=== PATIENT | female | born 1960 | race Caucasian/White ===

== ENCOUNTER 2016-10-04 19:43 | Emergency (ER) | payer MEDICARE, MEDICAID ==
[~2016-10-04] VITALS: Ht 172.7 cm; Wt 134.7 kg
[~2016-10-04 19:43] MED LIST: BIOT10004 PO; CLON1TAB3 PO; ESCI20TA10 PO; FLUT1DIS3 IH; HYDR-2762 PO; HYDR25TA9 PO; IBUP-1060 PO; METF500T4 PO; TRAZ150T55 PO
[2016-10-04 19:45] VITALS: BP 180/77
--- NOTE | 2016-10-04 20:48 | PHYS DOC ---
Past Medical History Past Medical History: Diabetes-Type II, High Cholesterol, Hypertension Past Surgical History: Other Additional Past Surgical Histo: R ankle Alcohol Use: Occasionally Drug Use: Marijuana Adult General Chief Complaint Chief Complaint: LOWER EXT PAIN HPI HPI Patient is a 55 year old female presents to the emergency department stating that she has having pain on her right lower leg. She states that she has not had any injuries or trauma to her ankle. She does have a history of an ankle fracture in the past in which she has chronic pain and discomfort in which she takes hydrocodone for she also states the hydrocodone does not help with the pain and discomfort anymore. She noticed that there was increased pain and swelling after cleaning the house today. Does have redness noted on the lower frontal part of her leg. Peripheral pulses are 2+ cap refill brisk less than 2 seconds. Review of Systems Review of Systems Constitutional: Denies fever or chills [] Eyes: Denies change in visual acuity, redness, or eye pain [] HENT: Denies nasal congestion or sore throat [] Respiratory: Denies cough or shortness of breath [] Cardiovascular: No additional information not addressed in HPI [] GI: Denies abdominal pain, nausea, vomiting, bloody stools or diarrhea [] : Denies dysuria or hematuria [] Musculoskeletal: Denies back pain or joint pain [] Integument: Denies rash or skin lesions. C/o pain to the right lower leg and ankle Neurologic: Denies headache, focal weakness or sensory changes [] Current Medications Current Medications Current Medications Medications (Trade) Dose Ordered Sig/Libra Start Time Stop Time Status Last Admin Dose Admin Oxycodone/ Acetaminophen (Percocet 5/325) 1 tab 1X ONCE 10/04/16 21:00 10/04/16 21:01 DC 10/04/16 20:57 1 TAB Allergies Allergies Allergies Coded Allergies Type Severity Reaction Last Updated Verified No Known Drug Allergies 11/28/15 No Physical Exam Physical Exam Constitutional: Well developed, well nourished, no acute distress, non-toxic appearance. [] HENT: Normocephalic, atraumatic, bilateral external ears normal, oropharynx moist, no oral exudates, nose normal. [] Eyes: PERRLA, EOMI, conjunctiva normal, no discharge. [] Neck: Normal range of motion, no tenderness, supple, no stridor. [] Cardiovascular:Heart rate regular rhythm, no murmur [] Lungs & Thorax: Bilateral breath sounds clear to auscultation [] Skin: Warm, dry, no erythema, no rash. [] Back: No tenderness Extremities: Right lower leg tenderness with redness and right ankle tenderness , no cyanosis, no clubbing, ROM intact, no edema. Patient appears to be able to ambulate although does appear to be limping favoring the right leg. Neurologic: Alert and oriented X 3, normal motor function, normal sensory function, no focal deficits noted. [] Psychologic: Affect normal, judgement normal, mood normal. [] Current Patient Data Vital Signs Vital Signs Date Time Temp Pulse Resp B/P Pulse Ox O2 Delivery O2 Flow Rate FiO2 10/04/16 20:57 Room Air 10/04/16 19:45 98.2 102 20 95 98.2 EKG EKG [] Radiology/Procedures Radiology/Procedures [] Course & Med Decision Making Course & Med Decision Making Pertinent Labs and Imaging studies reviewed. (See chart for details) Suspect the patient has cellulitis in the right lower leg. She is insistent that she needs to have an x-ray of the ankle. Explained to the patient that she has had no trauma or injury to the ankle the x-rays will more than likely be negative. Family member in patient was persistent that they had to have an x- ray proceeded to call his nurse practitioner jarad. Patient was then noted to be up ambulating out to the nurse's station with a limp. She was then noted to be ambulating in the [place] to the bathroom with no limp. X-rays of the tib-fib as well as ankle were negative per Dr. De. Patient will be discharged home with Bactrim for a cellulitis of the right lower leg with recommendations to keep her appointment on October 11 for follow-up. She may use Tylenol and ibuprofen for pain and discomfort she may also use ice packs elevation as much as possible. [] Dragon Disclaimer Dragon Disclaimer This electronic medical record was generated, in whole or in part, using a voice recognition dictation system. Departure Departure Impression: Primary Impression: Cellulitis of right lower leg Disposition: HOME, SELF-CARE Condition: STABLE Referrals: FRANSICO SIMS MD (PCP) Patient Instructions: Cellulitis, [id number] Additional Instructions: Your x-rays were negative for any fractures or any bony abnormalities. Antibiotics as prescribed. Tylenol or ibuprofen for pain and discomfort. Ice packs on 20 minutes off 20 minutes several times a day. Elevation as much as possible. Follow-up with your primary care physician in which she state you have an appointment on October 11. Return back to emergency department signs symptoms of become worse. Scripts Sulfamethoxazole/Trimethoprim (Bactrim Ds Tablet)1 Each Tablet1 Tab PO BID #20 TAB Prov:RONALDO ST APRN 10/04/[address] APRN Oct 04, 2016 20:48
[2016-10-04] MEDS ORDERED: OXYCODONE/APAP 5/325 TABLET. PO ONE (21:00)
[2016-10-04] MEDS ORDERED: SULF1TAB24 PO (22:03)
--- NOTE | 2016-10-05 08:53 | RAD ---
Right ankle, 3 views, 10/04/2016: History: Pain, previous surgery There is a metallic plate and screws in place transfixing an old healed fracture of the distal fibula. There is considerable degenerative change at the ankle joint. There is associated irregularity of the articular surface of the talus. There are periarticular calcifications and bone fragments. No definite acute fracture or dislocation is evident. There is moderate soft tissue swelling about the ankle. Right tibia and fibula, 2 views, 10/04/2016: Views of the proximal tibia and fibula reveal no additional bony abnormality. A few scattered calcified phleboliths are noted. IMPRESSION: 1. Old healed, internally fixed distal fibular fracture. 2. Severe degenerative change at the ankle joint. 3. Irregularity of the articular surface of the talus which appears old.
== END 2016-10-04 22:06 | disposition home or self-care (01) ==
LOC: ER 19:43
DX: L03.115 Cellulitis of right lower limb (principal); G89.29 Other chronic pain; E11.9 Type 2 diabetes mellitus without complications; E78.00 Pure hypercholesterolemia, unspecified; I10 Essential (primary) hypertension; F12.10 Cannabis abuse, uncomplicated; Z87.81 Personal history of (healed) traumatic fracture
CPT/HCPCS: 73590; 73610; 99284

== ENCOUNTER → 2020-03-17 | Outpatient (CLI) | payer MEDICARE, MEDICAID ==
[2019-11-03 15:59] VITALS: BP 136/63
[~2020-03-17] MED LIST changes: -CLON1TAB3 PO; +CLONAZEPAM1 MG PO; +CYCL10TA2 PO; -ESCI20TA10 PO; +HYDR-2145 PO; -HYDR-2762 PO; +HYDR-2765 PO; -HYDR25TA9 PO; +LEXAPRO20 MG PO; +METF500T16 PO; -METF500T4 PO; +SIMV40TA18 PO; +SULF1TAB24 PO; +TRAZ150T49 PO; -TRAZ150T55 PO; +VENL75CA6 PO
--- NOTE | 2020-03-17 14:02 | KCIC ---
LUMBAR SPINE WO CONTRAST Date: 03/17/2020 12:30 PM Indication: LUMBAR RADICULOPATHY / Spl. Instructions: / History: Unexplained pelvic cramping for 2 yrs. LBP. Comparison: CT 11/02/2019. Technique: Multi-planar multi-weighted magnetic resonance imaging of the lumbar spine was performed without intravenous contrast using the standard lumbar spine protocol. FINDINGS: The lumbar spine is normally aligned. No acute fracture. Mild multilevel degenerative disc desiccation and disc height loss. Degenerative endplate edema at at L4-5, and to a lesser extent L2-3 and T12-L1. The conus terminates at a normal level. No abnormal signal is seen within the visualized distal spinal cord. No clumping of intrathecal nerve roots. No soft tissue abnormality in the visualized abdomen or pelvis. T12-L1: No disc bulge. No facet arthropathy. No significant spinal stenosis or neural foraminal narrowing. L1-L2: No disc bulge. No facet arthropathy. No significant spinal stenosis or neural foraminal narrowing. L2-L3: Disc bulge. Mild facet arthropathy. No significant spinal stenosis. Mild left lateral recess and neural foraminal narrowing. L3-L4: Disc bulge. Mild facet arthropathy. Mild spinal stenosis. Mild left neural foraminal narrowing. L4-L5: Disc bulge. Mild facet arthropathy. Ligamentum flavum thickening. Moderate spinal stenosis. Mild right and moderate left lateral recess narrowing. Mild to moderate bilateral neural foraminal narrowing. L5-S1: Disc bulge with left far lateral protrusion which displaces the exiting left L5 nerve root. Mild facet arthropathy. No significant spinal stenosis. Moderate left neural foraminal narrowing. IMPRESSION: Moderate lumbar spondylosis, worst at L4-5 and L5-S1 as detailed level by level above. Electronically signed by: Ryan Dobbs MD (03/17/2020 1:59 PM) [id number]
== END ==
LOC: KCIC MRI 12:28
PROVIDERS: ATTEND Family Medicine
DX: M47.27 Other spondylosis with radiculopathy, lumbosacral region (principal); M48.07 Spinal stenosis, lumbosacral region
CPT/HCPCS: 72148

== ENCOUNTER → 2020-07-22 | Outpatient (CLI) | payer MEDICARE, MEDICAID ==
[2019-11-03 15:59] VITALS: BP 136/63
--- NOTE | 2020-07-23 19:55 | RAD ---
DATE: 07/22/2020 EXAM: DIGITAL SCREEN BILAT W/CAD HISTORY: Screening COMPARISON: 10/15/2015, 04/16/2011 This study was interpreted with the benefit of Computerized Aided Detection (CAD). Breast Density: SCATTERED The breast parenchyma shows scattered fibroglandular densities. Breast parenchyma level B. FINDINGS: No suspicious mass, microcalcifications, or architectural distortion. IMPRESSION: No evidence of malignancy in either breast. BI-RADS CATEGORY: 1 NEGATIVE RECOMMENDED FOLLOW-UP: 12M 12 MONTH FOLLOW-UP PQRS compliance statement: Patient information was entered into a reminder system with a target due date for the next mammogram. Mammography is a sensitive method for finding small breast cancers, but it does not detect them all and is not a substitute for careful clinical examination. A negative mammogram does not negate a clinically suspicious finding and should not result in delay in biopsying a clinically suspicious abnormality. "Our facility is accredited by the [employer] Mammography Program."
== END ==
LOC: MAMMO 09:07
PROVIDERS: ATTEND Family Medicine
DX: Z12.31 Encounter for screening mammogram for malignant neoplasm of breast (principal)
CPT/HCPCS: 77067

== ENCOUNTER → 2021-07-23 | Outpatient (CLI) | payer MEDICARE, MEDICAID ==
[2019-11-03 15:59] VITALS: BP 136/63
[~2021-07-23] MED LIST changes: +CYCL10TA19 PO; -CYCL10TA2 PO
--- NOTE | 2021-07-23 16:59 | RAD ---
Bilateral digital screening 2-D and 3-D (digital breast tomosynthesis) mammogram: Reason for examination: Routine screening. Comparison: Mammograms from 07/22/2020 and the 10/15/2015. Interpretation was made with the benefit of CAD. FINDINGS: Breast density: Category A. Breast tissue is almost entirely fatty. No suspicious breast mass, malignant appearing calcifications, or architectural distortion is seen. IMPRESSION: No evidence of malignancy. Assessment: BI-RADS 1. Negative. Recommendation: Routine screening mammograms. The patient will receive a letter with the results in the mail. Patient information will be entered i nto the mammography reminder system with a target recall date for the next mammogram. A reminder neisha er will be generated. Electronically signed by: Nichole Raphael MD (07/23/2021 4:56 PM) [id number]
== END ==
LOC: MAMMO 10:33
PROVIDERS: ATTEND Family Medicine
DX: Z12.31 Encounter for screening mammogram for malignant neoplasm of breast (principal)
CPT/HCPCS: 77063; 77067

== ENCOUNTER → 2021-09-24 | Outpatient (CLI) | payer MEDICARE, MEDICAID ==
[2019-11-03 15:59] VITALS: BP 136/63
--- NOTE | 2021-09-24 16:58 | RAD ---
US PELVIS COMPLETE History: Postmenopausal bleeding Comparison: CT lumbar spine 11/02/2019 Technique: Sonographic examination of the pelvis was performed with transabdominal technique. Findings: Uterus- Uterine parenchyma: Homogeneous without fibroids. Uterine measurements: 8.1 x 3.0 x 4.5 cm Cervix: Unremarkable. Endometrium- Endometrial Stripe: No abnormal fluid collections in the endometrial cavity, no obvious mass, and no abnormal blood flow within the endometrium by Doppler. Thickness: 6 mm. Adnexa- Right Ovary: Identified and appears normal. Size: 3.2 x 2.2 x 1.3 cm Doppler: Normal. Left Ovary: Identified and appears normal. Size: 3.3 x 1.7 x 1.8 cm Doppler: Normal. Other: No abnormal adnexal masses. No abnormal free fluid in the pelvis. Impression: 1. No abnormality identified in the pelvis. 6 mm endometrial stripe without masses identified. In se tting of postmenopausal bleeding, consider endometrial biopsy. Electronically signed by: Arnaldo Blackman MD (09/24/2021 4:56 PM) [id number]
== END ==
LOC: US 14:13
PROVIDERS: ATTEND Family Medicine
DX: N95.0 Postmenopausal bleeding (principal)
CPT/HCPCS: 76856

== ENCOUNTER 2021-10-21 16:53 | Emergency (ER) | payer MEDICARE, MEDICAID ==
[~2021-10-21] VITALS: Ht 165.1 cm; Wt 115.0 kg
[2021-10-21] MEDS ORDERED: HYDROmorphone 2 MG/ML INJ. IVP ONE (18:30)
[2021-10-21] MEDS ORDERED: ONDANSETRON PF 4 MG/2 ML VIAL. IVP ONE (18:30)
[2021-10-21] MEDS ORDERED: IV NORMAL SALINE 1000ML BAG 1,000 ML IV ONE (18:30)
[2021-10-21 18:36] LABS: BASO # 0.1 x10^3/uL (0.0-0.2); BASO % 1 % (0-3); EOS # 0.1 x10^3/uL (0.0-0.7); EOS % 1 % (0-3); HEMATOCRIT 42.5 % (36.0-47.0); HEMOGLOBIN 14.7 g/dL (12.0-15.5); LYMPH # 2.8 x10^3/uL (1.0-4.8); LYMPH % 27 % (24-48); MEAN CORPUSCULAR HEMOGLOBIN 33 pg (25-35); MEAN CORPUSCULAR HGB CONC 35 g/dL (31-37); MEAN CORPUSCULAR VOLUME 96 fL (79-100); MONO # 0.8 x10^3/uL (0.0-1.1); MONO % 8 % (0-9); NEUT # 6.7 x10^3/uL (1.8-7.7); NEUT % 63 % (31-73); PLATELET COUNT 262 x10^3/uL (140-400); RED BLOOD COUNT 4.44 x10^6/uL (3.50-5.40); RED CELL DISTRIBUTION WIDTH 12.5 % (11.5-14.5); WHITE BLOOD COUNT 10.6 x10^3/uL (4.0-11.0)
[2021-10-21 18:44] LABS: CALCIUM 9.1 mg/dL (8.5-10.1); CREATININE 0.8 mg/dL (0.6-1.0); GFR 72.9; POTASSIUM 3.8 mmol/L (3.5-5.1)
--- NOTE | 2021-10-21 18:49 | PHYS DOC ---
Past Medical History Past Medical History: Diabetes-Type II, High Cholesterol, Hypertension Additional Past Medical Histor: allergies Past Surgical History: Cholecystectomy, Other Additional Past Surgical Histo: R ankle Smoking Status: Current Every Day Smoker Alcohol Use: Occasionally Drug Use: Marijuana Adult General Chief Complaint Chief Complaint: ABDOMINAL PAIN HPI HPI Patient is a 60 year old female present emergency department for evaluation of diffuse lower abdominal pain that she says has been an off-and-on issue for the past 1 month. She says it is diffuse lower and crampy and has been associated with nausea but no vomiting fevers chills diarrhea constipation dysuria hematuria vaginal bleeding or vaginal discharge. She says she has had a cholecystectomy due to gallstones but she is saying that she still has stones in her gallbladder and I think she may mean that she has had bile duct stones but she was uncertain. Patient says that the pain comes and goes and is not associate with eating drinking or anything else that she can think of. She is in no acute distress with normal vitals. Review of Systems Review of Systems Constitutional: Denies fever or chills [] Eyes: Denies change in visual acuity, redness, or eye pain [] HENT: Denies nasal congestion or sore throat [] Respiratory: Denies cough or shortness of breath [] Cardiovascular: No additional information not addressed in HPI [] GI: + abdominal pain, nausea. No vomiting, bloody stools or diarrhea [] : Denies dysuria or hematuria [] Musculoskeletal: Denies back pain or joint pain [] Integument: Denies rash or skin lesions [] Neurologic: Denies headache, focal weakness or sensory changes [] All other systems were reviewed and found to be within normal limits, except as documented in this note. Current Medications Current Medications Current Medications Medications (Trade) Dose Ordered Sig/Libra Start Time Stop Time Status Last Admin Dose Admin Hydromorphone HCl (Dilaudid) 1 mg 1X ONCE 10/21/21 18:30 10/21/21 18:31 DC 10/21/21 18:42 1 MG Magnesium Citrate (Citroma) 296 ml 1X ONCE 10/21/21 20:30 10/21/21 20:31 UNV Methylnaltrexone [place] (Relistor) 12 mg 1X ONCE 10/21/21 20:30 10/21/21 20:31 UNV Ondansetron HCl (Zofran) 4 mg 1X ONCE 10/21/21 18:30 10/21/21 18:31 DC 10/21/21 18:42 4 MG Sodium Chloride 1,000 ml @ 1,000 mls/hr 1X ONCE 10/21/21 18:30 10/21/21 19:29 DC 10/21/21 18:39 1,000 MLS/HR Allergies Allergies Allergies Coded Allergies Type Severity Reaction Last Updated Verified Sulfa (Sulfonamide Antibiotics) Allergy Intermediate "hives" 11/02/19 Yes Physical Exam Physical Exam Constitutional: Well developed, well nourished, no acute distress, non-toxic appearance. [] HENT: Normocephalic, atraumatic, bilateral external ears normal, oropharynx moist, no oral exudates, nose normal. [] Eyes: PERRLA, EOMI, conjunctiva normal, no discharge. [] Neck: Normal range of motion, no tenderness, supple, no stridor. [] Cardiovascular:Heart rate regular rhythm, no murmur [] Lungs & Thorax: Bilateral breath sounds clear to auscultation [] Abdomen: Bowel sounds normal, soft, diffuse abdominal tenderness to palpation in bilateral lower quadrants with no rebound or guarding. Skin: Warm, dry, no erythema, no rash. [] Back: No tenderness, no CVA tenderness. [] Extremities: No tenderness, no cyanosis, no clubbing, ROM intact, no edema. [] Neurologic: Alert and oriented X 3, normal motor function, normal sensory function, no focal deficits noted. [] Current Patient Data Vital Signs Vital Signs Date Time Temp Pulse Resp B/P (MAP) Pulse Ox O2 Delivery O2 Flow Rate FiO2 10/21/21 20:00 74 29 115/60 (78) 90 10/21/21 19:10 Room Air 10/21/21 17:08 98.4 98.4 Lab Values Laboratory Tests Test 10/21/21 17:30 10/21/21 19:10 White Blood Count 10.6 x10^3/uL (4.0-11.0) Red Blood Count 4.44 x10^6/uL (3.50-5.40) Hemoglobin 14.7 g/dL (12.0-15.5) Hematocrit 42.5 % (36.0-47.0) Mean Corpuscular Volume 96 fL (79-100) Mean Corpuscular Hemoglobin 33 pg (25-35) Mean Corpuscular Hemoglobin Concent 35 g/dL (31-37) Red Cell Distribution Width 12.5 % (11.5-14.5) Platelet Count 262 x10^3/uL (140-400) Neutrophils (%) (Auto) 63 % (31-73) Lymphocytes (%) (Auto) 27 % (24-48) Monocytes (%) (Auto) 8 % (0-9) Eosinophils (%) (Auto) 1 % (0-3) Basophils (%) (Auto) 1 % (0-3) Neutrophils # (Auto) 6.7 x10^3/uL (1.8-7.7) Lymphocytes # (Auto) 2.8 x10^3/uL (1.0-4.8) Monocytes # (Auto) 0.8 x10^3/uL (0.0-1.1) Eosinophils # (Auto) 0.1 x10^3/uL (0.0-0.7) Basophils # (Auto) 0.1 x10^3/uL (0.0-0.2) Sodium Level 133 mmol/L (136-145) L Potassium Level 3.8 mmol/L (3.5-5.1) Chloride Level 92 mmol/L (98-107) L Carbon Dioxide Level 32 mmol/L (21-32) Anion Gap 9 (6-14) Blood Urea Nitrogen 20 mg/dL (7-20) Creatinine 0.8 mg/dL (0.6-1.0) Estimated GFR (Cockcroft-Gault) 72.9 BUN/Creatinine Ratio 25 (6-20) H Glucose Level 77 mg/dL (70-99) Calcium Level 9.1 mg/dL (8.5-10.1) Total Bilirubin 0.3 mg/dL (0.2-1.0) Aspartate Amino Transferase (AST) 18 U/L (15-37) Alanine Aminotransferase (ALT) 26 U/L (14-59) Alkaline Phosphatase 83 U/L (46-116) Total Protein 7.5 g/dL (6.4-8.2) Albumin 3.8 g/dL (3.4-5.0) Albumin/Globulin Ratio 1.0 (1.0-1.7) Lipase 92 U/L (73-393) Urine Collection Type Unknown Urine Color (Auto) Light yellow Urine Turbidity Clear Urine pH (Auto) 6.5 (<5.0-8.0) Urine Specific [place] 1.014 (1.000-1.030) Urine Protein (Auto) Negative mg/dL (Negative) Urine Glucose (Auto)(UA) Negative mg/dL (Negative) Urine Ketones (Auto) Negative mg/dL (Negative) Urine Blood (Auto) Negative (Negative) Urine Nitrite Negative (Negative) Urine Bilirubin (Auto) Negative (Negative) Urine Urobilinogen (Auto) Normal mg/dL (Normal) Urine Leukocyte Esterase (Auto) Moderate (Negative) Urine RBC 0 /HPF (0-2) Urine WBC 5-10 /HPF (0-4) Urine Squamous Epithelial Cells Mod /LPF Urine Bacteria Few /HPF (0-FEW) Laboratory Tests 10/21/21 17:30 Laboratory Tests 10/21/21 17:30 EKG EKG Sinus rhythm at 69 bpm with normal axis no ST elevation or depression and normal T waves Radiology/Procedures Radiology/Procedures [] Course & Med Decision Making Course & Med Decision Making I will check labs and imaging treat symptoms and reassess. A CT using radiopaque IV contrast would be the preferred radiologic imaging for this patient however due to an unprecedented worldwide shortage of I denied IV contrast agent hospital protocols have been adjusted to conserve remaining and available contrast doses. Patient's imaging shows no acute surgical process. Patient's pain improved significantly and her repeat abdominal exam is benign with no focal tenderness rebound or guarding and she was able to tolerate fluids by mouth with no difficulty. I told her all incidental findings on labs and imaging including it appears that she is constipated. She says that she does take hydrocodone and that she does have issues with constipation. There is no signs of obstruction at this time. Patient says she feels much better and would like to go home. Given patient appears well with normal vital signs benign physical exam work-up and is asking to go home I will discharge her in stable condition. I will give her dose of magnesium citrate here in addition to relistor. I told patient to follow with her primary care provider within 2 days for recheck and come back to emergency department sooner with worsening pain fevers vomiting or other general concerns. Patient aware and agreeable with plan and verbalized understanding of the above instructions. Dragon Disclaimer Dragon Disclaimer This electronic medical record was generated, in whole or in part, using a voice recognition dictation system. Departure Departure Impression: Primary Impression: Abdominal pain Additional Impression: Constipation Disposition: HOME / SELF CARE / HOMELESS Condition: STABLE Referrals: FRANSICO SIMS MD (PCP) Patient Instructions: Constipation, Adult Additional Instructions: Take Miralax twice daily. Drink plenty of fluids and eat a high-fiber diet. Problem Qualifiers Primary Impression: Abdominal pain Abdominal location: generalized Qualified Codes: R10.84 - Generalized abdominal pain Additional Impression: Constipation Constipation type: unspecified constipation type Qualified Codes: K59.00 - Constipation, unspecified ANDREW GUZMAN DO October 21, 2021 18:49
[2021-10-21 18:51] LABS: ALBUMIN 3.8 g/dL (3.4-5.0); TOTAL BILIRUBIN 0.3 mg/dL (0.2-1.0); TOTAL PROTEIN 7.5 g/dL (6.4-8.2)
--- NOTE | 2021-10-21 19:33 | RAD ---
EXAM: CT Abdomen and Pelvis without IV contrast CLINICAL HISTORY: BL lower abd pain COMPARISON: none TECHNIQUE: Helical CT of the abdomen and pelvis without intravenous contrast. Axial, coronal and sagi ttal reformatted images were generated. PQRS compliance statement - One or more of the following individualized dose reduction techniques wer e utilized for this study: 1. Automated exposure control 2. Adjustment of the mA and/or kV according to patient size 3. Use of iterative reconstruction technique FINDINGS: Lack of intravenous contrast limits evaluation of solid organs, vasculature, and lymph nodes. Lower chest: Lung bases are clear. Abdomen and Pelvis: No focal liver lesion. Cholecystectomy clips are seen. Spleen, adrenal glands and pancreas is unremar kable. No biliary duct dilatation. No renal tract calculus. No hydronephrosis. No hydroureter. Bladder is unremarkable. Moderate to large volume colonic stool content is seen. Appendix is normal. No small or large bowel d ilatation. No bowel obstruction. No abdominal or pelvic ascites. No abdominal or pelvic lymphadenopathy. Aorta is normal in caliber. A therosclerotic calcifications are seen. Bones: Degenerative changes of the lower lumbar spine. IMPRESSION: Appendix is normal. Moderate colonic stool content. No bowel obstruction. Electronically signed by: Gopi Rollins MD (10/21/2021 7:31 PM) [email or web address]
[2021-10-21 19:41] LABS: BACTERIA,URINE FEW /HPF (0-FEW); RBC,URINE 0 /HPF (0-2)
[2021-10-21] MEDS ORDERED: METHYLNALTREXONE 12 MG/0.6 ML VIAL. SQ ONE (20:30)
[2021-10-21] MEDS ORDERED: MAGNESIUM CITRATE 296 ML SOLUTION. PO ONE (20:30)
[2021-10-21 21:00] VITALS: BP 127/63
== END 2021-10-21 21:14 | disposition home or self-care (01) ==
LOC: ER 16:53
DX: R10.84 Generalized abdominal pain (principal); K59.00 Constipation, unspecified; E11.9 Type 2 diabetes mellitus without complications; E78.00 Pure hypercholesterolemia, unspecified; I10 Essential (primary) hypertension; F17.200 Nicotine dependence, unspecified, uncomplicated; Z90.49 Acquired absence of other specified parts of digestive tract; Z88.2 Allergy status to sulfonamides
CPT/HCPCS: 36415; 74176; 80053; 81001; 83690; 85025; 87077; 87086; 96361; 96372; 96374; 96375; 99285; J1170; J2212; J2405; J7030